=== PATIENT | female | born 1975 | race Caucasian/White ===

== ENCOUNTER → 2017-05-09 | Outpatient (CLI) | payer BC, OTHER ==
[~2017-05-09] MED LIST: ACTOS45 MG PO; JANUVIA25 MG PO; KEFLEX500 MG PO; LYRICA300 MG PO; METFORMIN HCL500 MG PO; MIRALAX17 GM PO; RISPERDAL0.25 MG PO; TRILEPTAL600 MG PO
== END | disposition home or self-care (01) ==
LOC: PICC 09:45
DX: M86.8X7 Other osteomyelitis, ankle and foot (principal); A49.02 Methicillin resistant Staphylococcus aureus infection, unspecified site

== ENCOUNTER 2017-08-03 06:39 | Day surgery (SDC) | payer BC, OTHER ==
[~2017-08-03] VITALS: Ht 172.7 cm; Wt 104.5 kg
[~2017-08-03 06:39] MED LIST changes: +AMARYL2 MG PO; +TRULICITY0.75 MG/0. SC
[2017-08-03] MEDS ORDERED: ZOLOFT25 MG PO (07:09)
[2017-08-03 07:17] LABS: POINT-OF-CARE METER ID UU14174212
[2017-08-03 07:18] VITALS: BP 120/73
[2017-08-03 08:18] LABS: METH RESISTANT S AUREUS PCR NEGATIVE (NEGATIVE); PROBE CHECK PASS; SPECIMEN PROCESSING CONTROL PASS
[2017-08-03 12:50] LABS: POINT-OF-CARE METER ID UU13113675
[2017-08-03 14:30] VITALS: BP 124/65
[2017-08-03 15:47] VITALS: BP 131/72
== END 2017-08-03 16:00 | disposition home or self-care (01) ==
LOC: SDC 06:39
PROVIDERS: Podiatrist Foot & Ankle Surgery
DX: M96.0 Pseudarthrosis after fusion or arthrodesis (principal); T84.84XA Pain due to internal orthopedic prosthetic devices, implants and grafts, initial encounter; Y83.1 Surgical operation with implant of artificial internal device as the cause of abnormal reaction of the patient, or of later complication, without mention of misadventure at the time of the procedure; S93.492S Sprain of other ligament of left ankle, sequela; E10.40 Type 1 diabetes mellitus with diabetic neuropathy, unspecified; F32.9 Major depressive disorder, single episode, unspecified; Z80.3 Family history of malignant neoplasm of breast; Z82.61 Family history of arthritis; Z83.79 Family history of other diseases of the digestive system
CPT/HCPCS: 73610; 76000; 82948; 87641; C1713; C1769; J0131; J0330; J0690; J1100; J1170; J2250; J2405; J2710; J3010; Q0175; S0020